=== PATIENT | male | born 1975 | race Caucasian/White ===

== ENCOUNTER 2017-03-02 10:34 | Emergency (ER) | payer BC ==
[~2017-03-02] VITALS: Ht 177.8 cm; Wt 80.0 kg
[2017-03-02 10:36] VITALS: BP 118/67
[2017-03-02] MEDS ORDERED: FLUORESCEIN OPHTHALMIC 1 MG STRIP ONE (11:05)
[2017-03-02] MEDS ORDERED: PROPARACAINE OPHTH 0.5%, 15ML ONE (11:05)
== END 2017-03-02 11:26 | disposition home or self-care (01) ==
LOC: ED 11:20
DX: H00.012 Hordeolum externum right lower eyelid (principal)
CPT/HCPCS: 99283

== ENCOUNTER 2018-11-17 05:52 | Emergency (ER) | payer BC, OTHER ==
[~2018-11-17] VITALS: Ht 177.8 cm; Wt 70.5 kg
[2018-11-17 05:54] VITALS: BP 119/85
--- NOTE | 2018-11-17 06:00 | NUR ---
PT PRESENTS C/O LOW BACK PAIN WELL BILATERAL FOOT EDEMA. Addendum: 11/17/18 at 0703 by JERONIMO PT REPORTS BILATERAL FOOT EDEMA RESOLVED AT THIS TIME.
[2018-11-17 06:37] LABS: BASOPHILS # (AUTO) 0.01 x10^3/uL (0-0.1); BASOPHILS % (AUTO) 0 % (0-1); EOSINOPHILS # (AUTO) 0.16 x10^3/uL (0-0.4); EOSINOPHILS % (AUTO) 3 % (1-7); LYMPHOCYTES # (AUTO) 1.28 x10^3/uL (1-3.4); LYMPHOCYTES % (AUTO) 21 % (22-44); MD NO; MEAN CORPUSCULAR HEMOGLOBIN 32.9 pg (27.5-34.5); MEAN CORPUSCULAR HGB CONC 33.2 g/dL (33.2-36.2); MEAN PLATELET VOLUME 7.5 fL (7.4-10.4); MONOCYTES # (AUTO) 0.38 x10^3/uL (0.2-0.8); MONOCYTES % (AUTO) 6 % (2-9); NEUTROPHILS % (AUTO) 70 % (42-75); PLATELET COUNT 194 x10^3/uL (130-400); RED BLOOD COUNT 5.11 x10^6/uL (4.38-5.82); RED CELL DISTRIBUTION WIDTH 13.4 % (9.4-14.8)
[2018-11-17 06:50] LABS: ALANINE AMINOTRANSFERASE 21 U/L (12-78); ALBUMIN 3.8 g/dL (3.4-5.0); ANION GAP 6 mmol/L (5-15); CALCIUM 8.6 mg/dL (8.5-10.1); CHLORIDE 115 mmol/L (98-107); CREATININE 1.05 mg/dL (0.7-1.3)
[2018-11-17 06:50] LABS: MICROSCOPIC NOT IND
[2018-11-17 06:52] LABS: ALKALINE PHOSPHATASE 50 U/L (45-117); BILIRUBIN,TOTAL 0.4 mg/dL (0.2-1.0)
--- NOTE | 2018-11-17 06:55 | NUR ---
REPORT GIVEN TO NEYMAR CONNER
[2018-11-17 06:57] LABS: CULTURE INDICATED? NO
--- NOTE | 2018-11-17 07:42 | NUR ---
DR. MELCHOR AT BEDSIDE.
--- NOTE | 2018-11-17 08:10 | NUR ---
Patient/Caregiver given discharge instructions and they have confirmed that they understand the instructions. Patient ambulatory with steady gait.
== END 2018-11-17 08:11 | disposition home or self-care (01) ==
LOC: ED 06:28
DX: S39.012A Strain of muscle, fascia and tendon of lower back, initial encounter (principal); Z88.0 Allergy status to penicillin; X58.XXXA Exposure to other specified factors, initial encounter; Y93.89 Activity, other specified; Y92.89 Other specified places as the place of occurrence of the external cause; Y99.8 Other external cause status
CPT/HCPCS: 36415; 72072; 72110; 80053; 81003; 85025; 99284

== ENCOUNTER 2019-03-12 07:44 | Emergency (ER) | payer BC ==
[~2019-03-12] VITALS: Ht 177.8 cm; Wt 67.0 kg
--- NOTE | 2019-03-12 08:22 | NUR ---
PATIENT BROUGTH BACK FROM TRIAGE WITH CHIEF COMPLAINT OF WORSENING ABD PAIN. THE PATIENT STATES THE PAIN STATED ABOUT 2 WEEKS AGO, HOWEVER WORSENING OVER NIHGT WITH N/V. THE PATIENT DENIES CP & SOB.
[2019-03-12] MEDS ORDERED: MORPHINE SULFATE 4 MG/ML, 1ML ONE (08:30)
[2019-03-12] MEDS ORDERED: FAMOTIDINE 20 MG/2 ML ONE (08:30)
[2019-03-12] MEDS ORDERED: ONDANSETRON 2MG/ML, 2ML ONE (08:30)
[2019-03-12] MEDS ORDERED: SODIUM CHLORIDE 0.9% 1,000ML IVBOLUS ONE (08:30)
[2019-03-12] MEDS ORDERED: MORPHINE SULFATE 4 MG/ML, 1ML IVPush PRN (08:30)
[2019-03-12] MEDS ORDERED: FAMOTIDINE 20 MG/2 ML IV ONE (08:30)
[2019-03-12] MEDS ORDERED: ONDANSETRON 2MG/ML, 2ML IVPush ONE (08:30)
[2019-03-12] MEDS ORDERED: SODIUM CHLORIDE FLUSH 10ML SYR IVF ONE (08:30)
[2019-03-12 08:43] LABS: BASOPHILS # (AUTO) 0.02 x10^3/uL (0-0.1); BASOPHILS % (AUTO) 0 % (0-1); EOSINOPHILS # (AUTO) 0.07 x10^3/uL (0-0.4); EOSINOPHILS % (AUTO) 2 % (1-7); LYMPHOCYTES # (AUTO) 1.06 x10^3/uL (1-3.4); LYMPHOCYTES % (AUTO) 23 % (22-44); MD NO; MEAN CORPUSCULAR HEMOGLOBIN 32.8 pg (27.5-34.5); MEAN CORPUSCULAR HGB CONC 33.8 g/dL (33.2-36.2); MEAN CORPUSCULAR VOLUME 97.1 fL (81-97); MEAN PLATELET VOLUME 7.1 fL (7.4-10.4); MONOCYTES # (AUTO) 0.58 x10^3/uL (0.2-0.8); MONOCYTES % (AUTO) 12 % (2-9); NEUTROPHILS # (AUTO) 2.96 x10^3/uL (1.8-6.8); NEUTROPHILS % (AUTO) 63 % (42-75); PLATELET COUNT 197 x10^3/uL (130-400); RED BLOOD COUNT 5.33 x10^6/uL (4.38-5.82); RED CELL DISTRIBUTION WIDTH 13.8 % (9.4-14.8)
[2019-03-12 08:48] LABS: MICROSCOPIC AUTO
[2019-03-12 08:51] LABS: CULTURE INDICATED? YES
[2019-03-12 08:52] LABS: ALANINE AMINOTRANSFERASE 22 U/L (12-78); ALBUMIN 3.8 g/dL (3.4-5.0); ANION GAP 4 mmol/L (5-15); CHLORIDE 112 mmol/L (98-107); CREATININE 1.04 mg/dL (0.7-1.3)
[2019-03-12 08:54] LABS: ALKALINE PHOSPHATASE 66 U/L (45-117); BILIRUBIN,TOTAL 0.6 mg/dL (0.2-1.0); TOTAL PROTEIN 7.3 g/dL (6.4-8.2)
--- NOTE | 2019-03-12 09:08 | NUR ---
REPORT TO ZOHREH BLACKMON
--- NOTE | 2019-03-12 10:02 | NUR ---
REPORT RECEIVED FROM NEYMAR JONES. ASSUMED CARE OF PT.
[2019-03-12] MEDS ORDERED: KETOROLAC 30 MG/1 ML ONE (10:18)
[2019-03-12] MEDS ORDERED: KETOROLAC 30 MG/1 ML IVPush ONE (10:30)
--- NOTE | 2019-03-12 10:34 | NUR ---
ASSUMED CARE FROM PRECEPTOR YOUNG. PT BACK FROM CT. MEDICATED PER JUN 23 RUQ ABD PAIN. DENIES NAUSEA AT THIS TIME. VSS. CALL [facility] IN [place].
[2019-03-12 11:48] VITALS: BP 135/67
== END 2019-03-12 11:52 | disposition home or self-care (01) ==
LOC: ED 09:19
DX: R10.11 Right upper quadrant pain (principal); R11.2 Nausea with vomiting, unspecified; R19.7 Diarrhea, unspecified; R31.9 Hematuria, unspecified; F17.200 Nicotine dependence, unspecified, uncomplicated
CPT/HCPCS: 36415; 74176; 76700; 80053; 81001; 83690; 85025; 87086; 96361; 96374; 96375; 99284; J1885; J2270; J2405; J3490; J7030